=== PATIENT | male | born 1955 | race Caucasian/White ===

== ENCOUNTER 2021-03-15 21:39 | Observation (INO) ==
[2021-03-15] MEDS ORDERED: Oxymetazoline Nasal SPRAY BOTTLE 15ML NS ONE ×2 (22:07→22:08)
[2021-03-15] MEDS ORDERED: Tranexamic Acid 1,000 MG, Syringe CATH TIP 1 EACH in Water for inj. (sterile) 10 ML NS ONE (22:42)
[2021-03-15 23:26] LABS: INR 2.2
[2021-03-15 23:28] LABS: Activated Partial Thrombo Time 46.5 Seconds (26.0-36.0)
[2021-03-15 23:30] LABS: Basophils # 0.1 K/mcL (0.0-0.2); Basophils % 0.9 %; Eosinophils # 0.3 K/mcL (0.0-0.6); Eosinophils % 3.4 %; Hematocrit 33.8 % (37.5-50.1); Hemoglobin 11.4 g/dL (12.9-16.9); Immature Granulocytes % 0.6 % (0-4); Mean Corpuscular HGB Conc 33.7 g/dL (31.6-35.5); Mean Corpuscular Volume 91.8 fL (83.0-100.0); Monocytes # 0.8 K/mcL (0.0-1.3); Monocytes % 8.8 %; Neutrophils # 5.8 K/mcL (1.6-8.9); Platelet Count 293 K/mcL (140-400); Red Blood Count 3.68 M/mcL (4.19-5.50); Red Cell Distribution Width 13.2 % (11.5-14.5); Segmented Neutrophils % 64.3 %
[2021-03-16] MEDS ORDERED: Naloxone 0.4 MG/ML INJ IVP PRN (01:17)
[2021-03-16] MEDS ORDERED: Ondansetron 4 MG/2 ML VIAL IVP PRN (01:17)
[2021-03-16] MEDS ORDERED: Melatonin 3 MG TABLET PO PRN (01:17)
[2021-03-16] MEDS: Acetaminophen 325 MG TABLET PO PRN ×2 (02:19→09:50)
[2021-03-16 04:54] LABS: Hematocrit 32.4 % (37.5-50.1); Hemoglobin 10.9 g/dL (12.9-16.9); Mean Corpuscular HGB Conc 33.6 g/dL (31.6-35.5); Mean Corpuscular Hemoglobin 30.9 pg (28.0-33.3); Mean Corpuscular Volume 91.8 fL (83.0-100.0); Mean Platelet Volume 9.8 fL (9.4-12.4); Platelet Count 279 K/mcL (140-400); Red Blood Count 3.53 M/mcL (4.19-5.50); Red Cell Distribution Width 13.2 % (11.5-14.5); White Blood Count 8.9 K/mcL (4.3-11.1)
[2021-03-16 05:02] LABS: INR 2.1; Prothrombin Time 23.8 Seconds (9.4-12.1)
[2021-03-16 05:27] LABS: Alanine Aminotransferase 12 Units/L (7-52); Albumin/Globulin Ratio 1.3 (1.1-2.2); Alkaline Phosphatase 62 Units/L (34-104); Aspartate Amino Transferase 23 Units/L (13-39); BUN/Creatinine Ratio 15 (6-26); Bilirubin,Total 0.7 mg/dL (0.3-1.0); Blood Urea Nitrogen 10 mg/dL (8-23); Calcium 9.2 mg/dL (8.6-10.3); Carbon Dioxide 22 mEq/L (23-29); Chloride 101 mEq/L (98-107); Globulin 3.1 g/dL (2.4-3.5); Glucose 110 mg/dL (70-105); Osmolality,Calculated 272 (280-300); Potassium 4.2 mEq/L (3.5-5.1); Sodium 131 mEq/L (136-145); Total Protein 7.1 g/dL (6.4-8.9); eGFR For African Americans > 60 (> 60); eGFR For Non-African Americans > 60 (> 60)
[2021-03-16] MEDS ORDERED: Indomethacin 25 MG CAPSULE PO PRN (16:46)
[2021-03-16] MEDS: lisinopriL 20 MG TABLET PO SCH (16:55)
[2021-03-16] MEDS: cloNIDine HCL 0.1 MG TABLET PO SCH (16:55)
[2021-03-16] MEDS: Doxycycline 100 MG in 0.9 % Sodium Chloride Mini Bag 100 ML IVPB SCH (18:19)
[2021-03-17] MEDS: Doxycycline 100 MG in 0.9 % Sodium Chloride Mini Bag 100 ML IVPB SCH (05:13)
[2021-03-17 05:23] LABS: Hematocrit 34.5 % (37.5-50.1); Hemoglobin 11.6 g/dL (12.9-16.9); Mean Corpuscular HGB Conc 33.6 g/dL (31.6-35.5); Mean Corpuscular Hemoglobin 30.8 pg (28.0-33.3); Mean Corpuscular Volume 91.5 fL (83.0-100.0); Mean Platelet Volume 9.9 fL (9.4-12.4); Platelet Count 303 K/mcL (140-400); Red Blood Count 3.77 M/mcL (4.19-5.50); Red Cell Distribution Width 13.5 % (11.5-14.5); White Blood Count 9.8 K/mcL (4.3-11.1)
[2021-03-17 05:32] LABS: INR 1.5; Prothrombin Time 16.4 Seconds (9.4-12.1)
[2021-03-17 05:42] LABS: BUN/Creatinine Ratio 13 (6-26); Blood Urea Nitrogen 8 mg/dL (8-23); Calcium 9.6 mg/dL (8.6-10.3); Carbon Dioxide 23 mEq/L (23-29); Chloride 98 mEq/L (98-107); Glucose 110 mg/dL (70-105); Osmolality,Calculated 269 (280-300); Potassium 3.7 mEq/L (3.5-5.1); Sodium 130 mEq/L (136-145); eGFR For African Americans > 60 (> 60); eGFR For Non-African Americans > 60 (> 60)
[2021-03-17] MEDS ORDERED: hydroCHLOROthiazide 25 MG TABLET PO SCH (06:00)
[2021-03-17] MEDS ORDERED: amLODIPine 5 MG TABLET PO SCH (06:00)
[2021-03-17] MEDS ORDERED: Metoprolol XL (24 HR) Succ 50 MG TAB.ER.24H PO SCH (06:00)
[2021-03-17 06:43] VITALS: BP 155/77; PULSE 92; TEMP 98.1; O2SAT 96
[2021-03-17] MEDS: cloNIDine HCL 0.1 MG TABLET PO SCH (07:16)
[2021-03-17] MEDS: lisinopriL 20 MG TABLET PO SCH (07:17)
== END 2021-03-17 14:30 | disposition home or self-care (01) ==
LOC: EMEROOARM 21:39 → 3BNU 21:39 → SUATTDRO 03-16 00:49 → 3BNU 03-16 01:09
PROVIDERS: ADMIT Internal Medicine; ATTEND Registered Nurse